=== PATIENT | female | born 1965 | race African-American/Black ===

== ENCOUNTER 2016-11-26 18:10 | Observation (INO) | payer BC ==
[~2016-11-26] VITALS: Ht 170.2 cm; Wt 85.8 kg
--- NOTE | 2016-11-26 18:12 | NUR ---
Pt ambulated to room # 8 with steady gait. Refused w/c.
[2016-11-26] MEDS ORDERED: LIPITOR20 M1 PO (18:29)
--- NOTE | 2016-11-26 18:48 | NUR ---
EXPLAINED POC TO PT, VSS. NO ACUTE DISTRESS AT THIS TIME. PLEASANT AND COOPERATIVE WITH CARE
[2016-11-26 18:50] LABS: HEMATOCRIT 34.8 % (37.0-47.0); HEMOGLOBIN 11.6 g/dl (12.0-16.0); IMMATURE GRANULOCYTES 0.2 % (0.0-1.0); MEAN CELL VOLUME 84.3 fL CALC (80.0-100.0); MEAN CORPUSCULAR HGB 28.1 pG CALC (26.0-32.0); MEAN CORPUSCULAR HGB CONC 33.3 g/L CALC (32.0-36.0); RED BLOOD COUNT 4.13 mill/uL (4.20-5.60)
[2016-11-26 19:05] LABS: ALBUMIN 4.4 g/dL (3.2-5.0); ALKALINE PHOSPHATASE 58 u/l (38-126); AMYLASE 82 u/l (30-110); ANION GAP 15 (6-22 (CALC)); BILIRUBIN, TOTAL 0.3 mg/dL (0.0-1.4); BUN 19 mg/dL (7-17); BUN/CREATININE RATIO 23 (12-20 (CALC)); CALCIUM 9.5 mg/dL (8.4-10.2); CARBON DIOXIDE 24 mmol/l (22-30); CHLORIDE 107 mmol/l (95-108); CREATININE 0.8 mg/dL (0.5-1.0); GFR > 60 ML/MIN (>=60 (CALC)); GFR FOR AFR.AMER. > 60 ML/MIN (>=60 (CALC)); GLUCOSE 99 mg/dL (65-105); LIPASE 220 u/l (23-300); POTASSIUM 3.9 mmol/l (3.5-5.1); SGOT/AST 31 u/l (14-36); SGPT/ALT 41 u/l (9-52); SODIUM 142 mmol/l (137-146); TOTAL PROTEIN 7.5 g/dL (6.3-8.2)
[2016-11-26 19:13] LABS: MYOGLOBIN 32 ng/mL (0 - 62)
--- NOTE | 2016-11-26 19:15 | NUR ---
PT RESTING IN BED. RESP EVEN AND UNLABORED. NO DISTRESS NOTED. PT A&O X 3. SKIN W/D. VSS. PT STATES CHEST "PRESSURE" OF 6/10. INFORMED PT OF PLAN OF CARE AND CONTINUED WAIT TIME AND SHE VERBALIZED UNDERSTANDING. CALL LIGHT IN REACH. FAMILY BEDSIDE.
--- NOTE | 2016-11-26 19:39 | NUR ---
MD BEDSIDE TO DISCUSS RESULTS AND PLAN OF CARE W/ PATIENT.
[2016-11-26 19:43] LABS: URINE BILIRUBIN - DIPSTICK NEGATIVE (NEGATIVE); URINE BLOOD DIPSTICK NEGATIVE (NEGATIVE); URINE CLARITY CLEAR; URINE COLOR YELLOW; URINE GLUCOSE - DIPSTICK NEGATIVE (NEGATIVE); URINE KETONE NEGATIVE (NEGATIVE); URINE LEUK ESTERASE NEGATIVE (NEGATIVE); URINE NITRITE - DIPSTICK NEGATIVE (Negative); URINE PROTEIN - DIPSTICK NEGATIVE (NEG-TRACE); URINE SPECIFIC GRAVITY 1.025; URINE UROBILINOGEN - DIPSTICK 0.2 E.U./dL (0.2)
--- NOTE | 2016-11-26 20:26 | NUR ---
PT CONTINUES RESTING W/ NO CHANGE IN ASSESSMENT. ATTEMPTED TO CALL REPORT TO MS, NURSE UNABLE TO TAKE REPORT AT THIS TIME.
--- NOTE | 2016-11-26 21:22 | NUR ---
Reassessment of patient completed. No distress noted.
--- NOTE | 2016-11-26 22:14 | NUR ---
REPORT CALLED TO Jean Marie MONTENEGRO RN.
--- NOTE | 2016-11-26 22:30 | NUR ---
PT. ARRIVED TO THE FLOOR VIA W/C ACCOMPANIED BY ER NURSE STEVE RIBEIRO. PT. AMBULATORY WITH STEADY GAIT, NO DISTRESS NOTED. PT. CONTINUES TO C/O 5/10 EPIGASTRIC PAIN THAT RADIATES TO BACK, AND HAS BEEN PERSISTENT PAST ONE AND HALF TO TWO WEEKS, NO CHANGE IN THIS. UPDATED PT. WITH POC AND PRN MEDICATIONS, PT. GIVEN EDUCATION ON NITROGLYCERIN AND DENIES NEEDS FOR THIS AT THIS TIME. PT. IS INSTRUCTED IF PAIN INCREASES OR CHANGED TO CALL STAFF AND NOTIFY OF US, VERBLAIZES UNDERSTANDING. DAUGHTER IS IN AT BEDSIDE TO STAY THE NIGHT. TELEMETRY IN PLACE. PT. REQUESTS ORDERED PRN SONATA, WILL BE PROVIDED. CALL LIGHT IS IN REACH. WILL CONTINUE TO MONITOR.
--- NOTE | 2016-11-26 22:38 | NUR ---
Admission Note Report Given to: Jean Marie MONTENEGRO RN Transported by: X Wheelchair Stretcher Transported with: X Nurse Transporter X Patent IV [id number] X Heater Engineer Helper
[2016-11-26 22:42] VITALS: BP 136/90
[2016-11-27] VITALS: BP 106/62
--- NOTE | 2016-11-27 | NUR ---
PT. RESTING IN BED WITH NO DISTRESS NOTED. DENIES NEEDS. CALL LIGHT IS IN REACH.
--- NOTE | 2016-11-27 02:30 | NUR ---
PT. RESTING IN BED ON RIGHT SIDE WITH NO DISTRESS NOTED. DENIES NEEDS. ENCOURAGED TO CALL FOR ANY NEEDS. CALL LIGHT IS IN REACH.
[2016-11-27 04:29] VITALS: BP 113/65
--- NOTE | 2016-11-27 04:33 | NUR ---
PT. SITTING UP IN BED WITH NO DISTRESS NOTED. VOICES NO COMPLAINTS. VSS. ENCOURAGED TO CALL FOR ANY NEEDS. DENIES NEEDS. CALL LIGHT IS IN REACH. WILL CONTINUE TO MONITOR.
[2016-11-27 06:35] LABS: ANION GAP 14 (6-22 (CALC)); BUN 13 mg/dL (7-17); BUN/CREATININE RATIO 22 (12-20 (CALC)); CARBON DIOXIDE 23 mmol/l (22-30); CHLORIDE 107 mmol/l (95-108); CHOLESTEROL HDL RATIO 2.9 (<4.4 (CALC)); CREATININE 0.6 mg/dL (0.5-1.0); GFR > 60 ML/MIN (>=60 (CALC)); GFR FOR AFR.AMER. > 60 ML/MIN (>=60 (CALC)); GLUCOSE 87 mg/dL (65-105); MAGNESIUM 1.9 mg/dL (1.6-2.3); SODIUM 140 mmol/l (137-146)
--- NOTE | 2016-11-27 07:00 | NUR ---
RECEIVED BEDSIDE REPORT FROM DINA WILSON. RESTING IN HIGH FOWLERS WITH EYES CLOSED, AWAKENS EASILY. RESPS EVEN AND UNLABORED ON ROOM AIR, TELE MONITOR IN PLACE. VISITOR AT BEDSIDE. DENIES PAIN OR DISCOMFORT. PLAN OF CARE DISCUSSED. SAFETY PRECAUTIONS REINFORCED. BED IN LOWEST POSITION WITH WHEELS LOCKED. CALL LIGHT WITHIN REACH. ENCOURAGED PT TO CALL FOR ANY NEEDS.
[2016-11-27 08:54] VITALS: BP 121/81
--- NOTE | 2016-11-27 10:45 | NUR ---
DR WEST IN TO SEE PT, NEW ORDERS RECEIVED.
--- NOTE | 2016-11-27 11:35 | NUR ---
MEDICATED WITH MALOX FOR C/O EPIGASTRIC PAIN. FAMILY AT BEDSIDE. CALL LIGHT WITHIN REACH. ENCOURAGED PT TO CALL FOR ANY NEEDS.
[2016-11-27] MEDS ORDERED: PROTONIX40 M2 PO (12:08)
[2016-11-27] MEDS ORDERED: ASPIRIN CHEWABL81 MG PO (12:08)
[2016-11-27 12:45] VITALS: BP 117/73
--- NOTE | 2016-11-27 14:30 | NUR ---
Discharge instructions given. Patient verbalizes understanding of same. Discharged in stable condition via Wheelchair to Home with family. All belongings sent with pt.
== END 2016-11-27 14:30 | disposition home or self-care (01) | DRG 313 ==
LOC: ENPENDDIS → ED 18:10 → ED-I 19:20 → ED 19:36 → MS2 19:37
PROVIDERS: Emergency Medicine; ADMIT Internal Medicine; ATTEND Internal Medicine
DX: R07.89 Other chest pain (principal); K27.9 Peptic ulcer, site unspecified, unspecified as acute or chronic, without hemorrhage or perforation; E78.5 Hyperlipidemia, unspecified; E66.9 Obesity, unspecified; B96.81 Helicobacter pylori [H. pylori] as the cause of diseases classified elsewhere; Z68.29 Body mass index [BMI] 29.0-29.9, adult
CPT/HCPCS: G0378; S0164

== ENCOUNTER 2023-12-07 06:26 | Day surgery (SDC) | payer OTHER ==
[~2023-12-07] VITALS: Ht 167.6 cm; Wt 83.0 kg
[~2023-12-07 06:26] MED LIST: ALEVE220 M2 PO; ALLERGY RE50 MCG/ACT NAB; AMLODIPINE BESYL5 MG PO; ASPIRIN CHEWABL81 MG PO; COZAAR50 MG PO; LIPITOR20 M1 PO; PROTONIX40 M2 PO
[2023-12-07] MEDS ORDERED: LACTATED RINGER'S 1,000 ML IV ONE (06:42)
[2023-12-07] MEDS ORDERED: FAMOTIDINE 10MG/ML 2ML SDV IV ONE (06:42)
[2023-12-07 08:51] VITALS: BP 103/74
[2023-12-07] MEDS ORDERED: LIDOCAINE HCL 2% 2ML SDV IV ONE (12:43)
[2023-12-07] MEDS ORDERED: PROPOFOL 200 MG/20 ML VIAL IV ONE (12:43)
== END 2023-12-07 08:55 | disposition home or self-care (01) ==
LOC: ENDO 06:26
PROVIDERS: ATTEND Internal Medicine Gastroenterology
DX: Z12.11 Encounter for screening for malignant neoplasm of colon (principal); K63.5 Polyp of colon; K64.8 Other hemorrhoids; K59.09 Other constipation; I10 Essential (primary) hypertension